=== PATIENT | female | born 1950 | race Caucasian/White ===

== ENCOUNTER 2016-05-19 01:17 | Emergency (ER) | payer MEDICARE, OTHER ==
[~2016-05-19] VITALS: Ht 165.1 cm; Wt 90.9 kg
[2016-05-19 01:24] VITALS: Ht 165.1 cm; Wt 90.9 kg
[2016-05-19] MEDS ORDERED: ASPIRIN 325 MG TAB PO STA (01:59)
--- NOTE | 2016-05-19 02:11 | ERA ---
ER Documentation Chief Complaint Date/Time DATE: 05/19/16 TIME: 02:08 Chief Complaint CP X2 hours,BIBA RA39,aspirin 162 mg PO administered by craft coordinator HPI Patient is a 66-year-old female who reports chest pain for last 2 hours. She states the pain feels similar to when she had her prior heart attack. She says she has shortness of breath with nausea and that the pain radiates into her left shoulder. She did take aspirin prior to coming in. She states the pain is now improved. She also felt lightheaded and dizzy but did not pass out. She said she felt poorly all day but did not have the chest pain into until 2 hours ago. She has not had any recent fever, coughing, congestion, rhinorrhea, sore throat, or otalgia. Nothing seemed to trigger the chest pain and she believes the aspirin helped the chest pain. She denies any lower extremity swelling or pain. She does have a history of a DVT but states that her extremities do not feel similar to that. Remainder of the systems are negative. ROS All systems reviewed and are negative except as per history of present illness. Allergies Allergies: Coded Allergies: nitroglycerin (Verified Allergy, Unknown, 05/19/16) PMhx/Soc History of Surgery: Yes (HYSTERECTOMY 1997) Anesthesia Reaction: No Hx Neurological Disorder: No Hx Respiratory Disorders: Yes (PNA, ASTHMA) Hx Cardiac Disorders: Yes (HTN) Hx Psychiatric Problems: No Hx Miscellaneous Medical Probl: Yes ("KIDNEY PROBLEMS") Hx Alcohol Use: Yes Hx Substance Use: No Hx Tobacco Use: Yes Smoking Status: Current every day smoker FmHx Family History: coronary disease Physical Exam Vitals Vital Signs Date Time Temp Pulse Resp B/P Pulse Ox O2 Delivery O2 Flow Rate FiO2 05/19/16 04:30 59 15 140/61 98 Nasal Cannula 2.0 05/19/16 03:00 98.1 61 15 132/63 97 Nasal Cannula 05/19/16 02:15 Nasal Cannula 2 05/19/16 01:25 97.6 63 18 163/84 100 Room Air 05/19/16 01:24 98.2 66 18 198/91 98 Physical Exam Const: [] Well-developed well-nourished female sitting on the bed no acute distress Head: Atraumatic normocephalic Eyes: Normal Conjunctiva, notable cholesterol deposits in her eyelids ENT: Normal External Ears, Nose and Mouth. Neck: Full range of motion..~ No meningismus. Resp: Clear to auscultation bilaterally Cardio: Regular rate and rhythm, no murmurs mild tenderness to palpation in the anterior chest wall Abd: Soft, non tender, non distended. Normal bowel sounds Skin: No petechiae or rashes Back: No midline or flank tenderness Ext: No cyanosis, mild pedal edema which is nonpitting, no calf tenderness to palpation Neur: Awake and alert, oriented 3 with a GCS of 15 grossly nonfocal Psych: Normal Mood and Affect Result Diagram: 05/19/1612905/19/160 Results 24 hrs Laboratory Tests Test 05/19/16 01:30 Activated Partial Thromboplast Time 27.2Sec Alanine Aminotransferase (ALT/SGPT) 16IU/L Albumin 3.7g/dl Albumin/Globulin Ratio 1.12 Alkaline Phosphatase 93IU/L Anion Gap 16 Aspartate Amino Transf (AST/SGOT) 15IU/L Basophils # 0.110^3/ul Basophils % 0.9% Blood Urea Nitrogen 37mg/dl Calcium Level 8.9mg/dl Carbon Dioxide Level 23mmol/L Chloride Level 106mmol/L Creatinine 1.65mg/dl Direct Bilirubin 0.00mg/dl Eosinophils # 0.310^3/ul Eosinophils % 4.1% Globulin 3.30g/dl Glucose Level 102mg/dl Hematocrit 38.4% Hemoglobin 12.8g/dl INR International Normalized Ratio 0.83 Indirect Bilirubin 0.0mg/dl Lymphocytes # 2.110^3/ul Lymphocytes % 30.0% Mean Corpuscular Hemoglobin 30.1pg Mean Corpuscular Hemoglobin Concent 33.3g/dl Mean Corpuscular Volume 90.4fl Mean Platelet Volume 11.9fl Monocytes # 0.510^3/ul Monocytes % 7.0% Neutrophils # 4.010^3/ul Neutrophils % 57.9% Nucleated Red Blood Cells # 0.010^3/ul Nucleated Red Blood Cells % 0.0/100WBC Platelet Count 90633^3/UL Potassium Level 4.6mmol/L Prothrombin Time 11.4Sec Prothrombin Time Ratio 0.9 Red Blood Count 4.2510^6/ul Red Cell Distribution Width 13.4% Sodium Level 140mmol/L Total Bilirubin 0.0mg/dl Total Protein 7.0g/dl Troponin I < 0.010ng/ml White Blood Count 6.810^3/ul Current Medications Medications (Trade) Dose Ordered Sig/Deric Route PRN Reason Start Time Stop Time Status Last Admin Dose Admin Aspirin 325 mg 325 mg ONCE STAT PO 05/19/16 01:59 05/19/16 02:00 DC 05/19/16 02:06 Sodium Chloride (NS) 1,000 ml @ 75 mls/hr [id number] IV 05/19/16 05:19 UNV IV Flush (NS 3 ml) 3 ml PER PROTOCOL IV 05/19/16 05:30 UNV Ondansetron HCl (Zofran Tab) 4 mg Q6H PRN PO NAUSEA AND/OR VOMITING 05/19/16 05:30 UNV Acetaminophen (Tylenol Tab) 650 mg Q6H PRN PO PAIN LEVEL 1-3 OR FEVER 05/19/16 05:30 UNV Acetaminophen/ Hydrocodone Bitart ([place] (5/325)) 1 tab Q6H PRN PO PAIN LEVEL 4-6 05/19/16 05:30 UNV Zolpidem Tartrate (Ambien) 5 mg QHS PRN PO INSOMNIA 05/19/16 05:30 UNV Docusate Sodium (Colace) 100 mg Q12H PRN PO CONSTIPATION 05/19/16 05:30 UNV Famotidine (Pepcid) 20 mg Q12 PO 05/19/16 09:00 UNV Enoxaparin Sodium (Lovenox) 40 mg DAILY SC 05/19/16 09:00 UNV Miscellaneous Information (* Miscellaneous Pharmacy Order) HYPOGLYCEMIA PROTOCOL w... ONCE ONCE XX 05/19/16 05:30 05/19/16 05:36 DC Miscellaneous Information (* Miscellaneous Pharmacy Order) Discontinue Glyburide, Glipizide,... ONCE ONCE XX 05/19/16 05:30 05/19/16 05:37 DC Miscellaneous Information (* Miscellaneous Pharmacy Order) Discontinue all previ... ONCE ONCE XX 05/19/16 05:30 05/19/16 05:37 DC Miscellaneous Information 1 ea NOTE XX 05/19/16 06:00 Glucose (Glutose) 15 gm Q15M PRN PO DECREASED GLUCOSE 05/19/16 06:00 Glucose (Glutose) 22.5 gm Q15M PRN PO DECREASED GLUCOSE 05/19/16 06:00 Dextrose (D50w Syringe) 25 ml Q15M PRN IV DECREASED GLUCOSE 05/19/16 06:00 Dextrose (D50w Syringe) 50 ml Q15M PRN IV DECREASED GLUCOSE 05/19/16 06:00 Glucagon (Glucagen) 1 mg Q15M PRN IM DECREASED GLUCOSE 05/19/16 06:00 Glucose (Glutose) 15 gm Q15M PRN BUCCAL DECREASED GLUCOSE 05/19/16 06:00 Procedures/MDM Differential includes but is not limited to nonspecific chest pain, chest wall pain, angina, myocardial ischemia, pleurisy, pneumonia, bronchitis EKG: Rate/Rhythm: Normal Sinus Rhythm at 60 bpm, patient has a intraventricular block with Q waves noted in leads V1 and V2 as well as V3 and nonspecific ST-T wave flattening diffusely, no evidence of acute ST elevation QRS, ST, T-waves: No changes consistent w/ acute ischemia Impression: No evidence of acute ischemia or arrhythmia Chest x-ray does not demonstrate any acute cardiopulmonary process At this time the patient is chest pain-free. I spoke with Dr. Martinez who is agreed to admit the patient for observation and rule out [place]. Further evaluation and treatment will be per Dr. Martinez Departure Diagnosis: Primary Impression: Chest pain Qualified Code: R07.2 - Precordial pain Additional Impressions: Coronary artery disease Qualified Code: I25.119 - Coronary artery disease involving [place] coronary artery of [place] heart with angina pectoris Hypertension Qualified Code: I10 - Essential hypertension Hypercholesterolemia Condition: ETELVINA Hinojosa May 19, 2016 02:11
[2016-05-19 02:33] LABS: ADD SCAN DIFF NO
--- NOTE | 2016-05-19 02:34 | RADRPT ---
PROCEDURE: XR Chest. CLINICAL INDICATION: Chest pain. TECHNIQUE: Single frontal chest x-ray. COMPARISON: None. FINDINGS: Patient is status post sternotomy.. Heart is mildly enlarged. There is no CHF. Lungs are slightly h yperinflated.. No focal infiltrate is seen. There is no pleural effusion. There is no pneumothorax . The osseous structures are unremarkable. IMPRESSION: Status post sternotomy. Cardiomegaly. Mild hyperinflation. No CHF or infiltrate. RPTAT: HMVK .Philip Chapman MD, MD Date Time Electronically viewed and signed by .Philip Chapman MD, on 05/19/2016 02:34 .K/
[2016-05-19 02:37] LABS: BASOPHIL # 0.1 10^3/ul (0.0-0.1); BASOPHILS % 0.9 % (0.0-2.0); EOSINOPHILS # 0.3 10^3/ul (0.0-0.5); EOSINOPHILS % 4.1 % (0.0-7.0); HEMATOCRIT 38.4 % (37.0-47.0); HEMOGLOBIN 12.8 g/dl (12.0-16.0); LYMPHOCYTES # 2.1 10^3/ul (0.8-2.9); MEAN CORPUSCULAR HEMOGLOBIN 30.1 pg (29.0-33.0); MEAN CORPUSCULAR HGB CONC 33.3 g/dl (32.0-37.0); MEAN CORPUSCULAR VOLUME 90.4 fl (82.0-101.0); MEAN PLATELET VOLUME 11.9 fl (7.4-10.4); MONOCYTE # 0.5 10^3/ul (0.3-0.9); NEUTROPHILS % 57.9 % (39.0-77.0); PLATELET COUNT 256 10^3/UL (140-415); RED BLOOD COUNT 4.25 10^6/ul (4.20-5.40); RED CELL DISTRIBUTION WIDTH 13.4 % (11.5-14.5); WHITE BLOOD COUNT 6.8 10^3/ul (4.8-10.8)
[2016-05-19 02:48] LABS: ALBUMIN 3.7 g/dl (3.3-4.9); INR 0.83; PARTIAL THROMBOPLASTIN TIME 27.2 Sec (25.0-35.0); PROTIME 11.4 Sec (12.2-14.2); PT RATIO 0.9
[2016-05-19 02:49] LABS: CHLORIDE 106 mmol/L (97-110); POTASSIUM 4.6 mmol/L (3.5-5.1); SODIUM 140 mmol/L (135-144)
[2016-05-19 02:51] LABS: ANION GAP 16 (8-16); ASPARTATE AMINO TRANSFERASE 15 IU/L (15-46); CARBON DIOXIDE 23 mmol/L (21-31); CREATININE 1.65 mg/dl (0.44-1.00)
[2016-05-19 02:52] LABS: ALANINE AMINOTRANSFERASE 16 IU/L (13-69); ALBUMIN/GLOBULIN RATIO 1.12; ALKALINE PHOSPHATASE 93 IU/L (42-121); BLOOD UREA NITROGEN 37 mg/dl (7-20); CALCIUM 8.9 mg/dl (8.4-10.2); GLUCOSE 102 mg/dl (70-220)
[2016-05-19 03:06] LABS: TROPONIN-I < 0.010 ng/ml (0.00-0.12)
[2016-05-19] MEDS ORDERED: SOD CHLORIDE 0.9% 1,000 ML IV SCH (05:19)
--- NOTE | 2016-05-19 05:27 | HP ---
Date/Time of Note Date/Time of Note DATE: 05/19/16 TIME: 05:27 Assessment/Plan VTE Prophylaxis VTE Prophylaxis Intervention: LMWH Lines/Catheters IV C[facility]ter Type [facility]from [facility] Saline Lock Assessment/Plan Assessment/Plan [facility] Ms. Vo is a 66-year-old patient of Dr. Morena Parry with hypertension , mixed hyperlipidemia, type II diabetes, stage III chronic kidney disease ( baseline creatinine 1.35), a history of [place], and subsequent 3-vessel coronary artery bypass surgery in 2010. She developed similar chest pain about midnight last night, with radiation to the left shoulder, nausea, and dizziness. Pain slightly alleviated by aspirin 162mg administered by EMS personnel en route. She was evaluated in March 2015 for similar chest pain at [facility], and was diagnosed with right lower lobe pneumonia. Lexiscan in January 2015 apparently showed no abnormalities, according to the patient. She is followed by Dr. Hernandez Blanton, Cardiology. Portable chest x-ray now shows no clear pulmonary disease. Initial two troponins are undetectable. EKG showed normal sinus rhythm, rate 61. She had low voltages in the limb leads, with wide-QRS complexes but no acute ischemic changes. Assessment: 1. Acute onset chest pain in patient with multiple risk factors (HLD, HTN, long- time smoker, diabetes). This pain seems atypical, with prolonged course, no association with exertion, and no elevation in the troponin despite prolonged pain. Seems less likely to be cardiac. 2. Chronic kidney disease, with creatinine 1.65 3. Type II diabetes 4. H/o DVT Plan: 1. Place under telemetry observation 2. Serial troponins 3. Echocardiogram in the morning 4. ESR, d-dimer, TSH, HgbA1c pending 5. Cardiology consultation with Dr. Philip Riddle this morning 6. Possible repeat Lexiscan today (NPO except for meds) 7. Patient is Full-Code 8. Lovenox 40mg SQ daily for DVT prophylaxis; famotidine 20mg PO BID for GI protection Matthias Uribe MD PhD [phone] HPI/ROS Admit Date/Time Admit Date/Time Hx of Present Illness Ms. Vo is a 66-year-old woman with a history of previous three-vessel coronary artery bypass graft surgery in 2010 and a most recent Yajaira scan will last summer. She has not been feeling well for the past month, with a sense of generalized weakness. Yesterday was her birthday, and she had a big piece of cake last night. No alcohol consumption. Admitted night she started feeling aching pain in the left chest, with radiation to the left arm and tingling down the arm. She felt some mild nausea. She says that she feels some shortness of breath more regularly, which was not worse last night. She called paramedics, and began to feel better en route to the hospital after taking 162 mg of chewable aspirin. ROS She has no nausea now, loose stool, constipation, or current chest pain. 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 She never practiced as a physician. She is a current smoking person. No alcohol consumption. Smoking Status: Current every day smoker Exam/Review of Systems Vital Signs Vitals Vital Signs Date Time Temp Pulse Resp B/P Pulse Ox O2 Delivery O2 Flow Rate FiO2 05/19/16 03:00 98.1 61 15 132/63 97 Nasal Cannula 05/19/16 02:15 2 Exam Exam She was serious and demeanor, but not uncomfortable breathing on room air. The pupils are equal round reactive to light, with intact ocular motion. There is no jaundice or conjunctivitis. She had no jugular venous distention. The neck was supple, with no thyromegaly. The cardiac rhythm is regular, with a normal rate. There is no murmur or rub. She had good peripheral perfusion. There was 1 + pitting pretibial and pedal edema. Chest was clear bilaterally, apart from some late expiratory rhonchi. Abdomen was large, soft, nontender, with normal bowel sounds and no hepatosplenomegaly. The joints were healthy appearing, and she had symmetric dorsalis pedis pulses. She was alert and oriented, with intact cranial nerves and motor exam. The toes were downgoing. Babinski reflexes were normal. Labs Result Diagram: 05/19/1612905/19/16129 CHRISTY URIBE M.D. May 19, 2016 05:27 CHRISTY URIBE M.D. May 19, 2016 05:27
[2016-05-19] MEDS ORDERED: ACETAMINOPHEN 325 MG TAB PO PRN ×2 (05:30→06:00)
[2016-05-19] MEDS ORDERED: NACL 0.9% 3 ML SYG IV SCH (05:30)
[2016-05-19] MEDS ORDERED: HYDROCODONE/APAP (5/325) TAB PO PRN (05:30)
[2016-05-19] MEDS ORDERED: ZOLPIDEM 5 MG TAB PO PRN (05:30)
[2016-05-19] MEDS ORDERED: ONDANSETRON 4 MG TAB PO PRN (05:30)
[2016-05-19] MEDS ORDERED: DOCUSATE SODIUM 100 MG CAP PO PRN (05:30)
[2016-05-19] MEDS ORDERED: DEXTROSE 50% 50 ML SYRINGE IV PRN ×2 (06:00)
[2016-05-19] MEDS ORDERED: GLUCOSE GEL 15 GRAM TUBE PO PRN ×2 (06:00)
[2016-05-19] MEDS ORDERED: GLUCOSE GEL 15 GRAM TUBE BUCCAL PRN (06:00)
[2016-05-19] MEDS ORDERED: ONDANSETRON 4 MG INJ IV PRN (06:00)
[2016-05-19] MEDS ORDERED: GLUCAGON 1 MG INJ IM PRN (06:00)
[2016-05-19] MEDS ORDERED: ENOXAPARIN 40 MG/0.4 ML SYG SC SCH (09:00)
[2016-05-19] MEDS ORDERED: FAMOTIDINE 20 MG TAB PO SCH (09:00)
[2016-05-19 10:04] LABS: CREATINE KINASE 48 IU/L (23-200); D-DIMER 2164.9 ng/ml (<460)
[2016-05-19 10:13] LABS: CK-MB 0.62 ng/ml (0.0-2.4)
[2016-05-19 10:17] LABS: TROPONIN-I < 0.010 ng/ml (0.00-0.12)
[2016-05-19] MEDS ORDERED: CARV3.1260 PO (10:37)
[2016-05-19] MEDS ORDERED: LISI2.5T59 PO (10:37)
[2016-05-19] MEDS ORDERED: SIMV5TAB50 PO (10:38)
[2016-05-19] MEDS ORDERED: OMEP20CA16 PO (10:39)
[2016-05-19] MEDS ORDERED: ASPI-664 PO (10:39)
--- NOTE | 2016-05-19 12:20 | CONS ---
Date/Time of Note Date/Time of Note DATE: 05/19/16 TIME: 12:08 Assessment/Plan Assessment/Plan Additional Assessment/Plan Chest, abdominal, neck pain Coronary artery disease with history of CABG Dyslipidemia Hypertension Kidney disease. Active tobacco use -Patient with symptoms of abdominal pain, chest pain, neck and shoulder pain and arm pain. She also complains of exertional wheezing over the past few months. She has had no further symptoms since admission. Serial troponins have been negative, ECG without any significant ischemic abnormalities. I did have an extensive discussion with the patient. She does have a cardiology appointment tomorrow with her sack sorter. She is requesting to be discharged to follow-up with her sack sorter which knows her best. That is reasonable given enzymes are negative, patient is asymptomatic currently and patient has follow-up within 24 hours. I asked the nursing staff to get the patient up and walk around, if she remains asymptomatic, okay for discharge at the current time with follow-up with her sack sorter tomorrow. Would continue aspirin, statin, beta-moo. Consultation Date/Type/Reason Admit Date/Time Type of Consultation: cv Reason for Consultation Chest pain Hx of Present Illness This is a 66-year-old female with history of coronary artery disease status post CABG approximately 6 years ago, dyslipidemia, hypertension, active tobacco abuse who presents with multiple complaints. Patient states, yesterday was her birthday and she drank some coffee and had some cake. Afterwards, she developed pain in her right upper quadrant, her mid abdomen, her chest, her neck and shoulders. She also developed symptoms of shortness of breath. Pain was occasionally tingling, occasionally crampy, occasionally heavy. Activity did not worsen or improve symptoms. She took some Indian medication for anxiety and afterwards felt lightheaded. Because of the above, she came to the emergency room for further evaluation and care. Since her admission, she denies any further symptoms. She does admit to exertional wheezing over the past few months. She has been smoking more recently. She denies exertional chest pain, dizziness or lightheadedness. She has had no further symptoms since admission. She does get occasional neck and shoulder pain with moving head side to side and moving her arms. 12 point review of systems was performed with all pertinent positives and negatives mentioned above and all else is negative Past Medical History Medical History: coronary artery disease, deep vein thrombosis, diabetes, high cholesterol, hypertension, renal disease Past Surgical History Past Surgical Hx: coronary bypass surgery, other (hysterectomy) Social History Smoking Status: Current every day smoker Exam/Review of Systems Vital Signs Vitals Vital Signs Date Time Temp Pulse Resp B/P Pulse Ox O2 Delivery O2 Flow Rate FiO2 05/19/16 11:00 97.6 65 15 116/96 98 Nasal Cannula 2.0 Exam No apparent distress Constitutional: alert, obese, oriented Head: normocephalic Neck: supple Respiratory: clear to auscultation, normal air movement Cardiovascular: other (S1-S2 heard), regular rate and rhythm, systolic murmur Gastrointestinal: bowel sounds, non-tender, other (No guarding), soft Extremities: other (No edema) Results Result Diagram: 05/19/1612905/19/16 0130 Results 24 hrs Laboratory Tests Test 05/19/16 01:30 05/19/16 09:35 Activated Partial Thromboplast Time 27.2 Alanine Aminotransferase (ALT/SGPT) 16 Albumin 3.7 Albumin/Globulin Ratio 1.12 Alkaline Phosphatase 93 Anion Gap 16 Aspartate Amino Transf (AST/SGOT) 15 Basophils # 0.1 Basophils % 0.9 Blood Urea Nitrogen 37 H Calcium Level 8.9 Carbon Dioxide Level 23 Chloride Level 106 Creatinine 1.65 H Direct Bilirubin 0.00 Eosinophils # 0.3 Eosinophils % 4.1 Globulin 3.30 H Glucose Level 102 Hematocrit 38.4 Hemoglobin 12.8 INR International Normalized Ratio 0.83 Indirect Bilirubin 0.0 Lymphocytes # 2.1 Lymphocytes % 30.0 Mean Corpuscular Hemoglobin 30.1 Mean Corpuscular Hemoglobin Concent 33.3 Mean Corpuscular Volume 90.4 Mean Platelet Volume 11.9 H Monocytes # 0.5 Monocytes % 7.0 Neutrophils # 4.0 Neutrophils % 57.9 Nucleated Red Blood Cells # 0.0 Nucleated Red Blood Cells % 0.0 Platelet Count 256 Potassium Level 4.6 Prothrombin Time 11.4 L Prothrombin Time Ratio 0.9 Red Blood Count 4.25 Red Cell Distribution Width 13.4 Sodium Level 140 Total Bilirubin 0.0 L Total Protein 7.0 Troponin I < 0.010 < 0.010 White Blood Count 6.8 Creatine Kinase 48 Creatine Kinase Index 1.3 Creatinine Kinase MB (Mass) 0.62 D-Dimer 2164.90 H D-Dimer Comment Erythrocyte Sedimentation Rate 55 H Medications Medications Current Medications Sodium Chloride (NS) 1,000 ml @ 75 mls/hr [id number] IV Last administered on 05/19 09:52; Admin Dose 75 MLS/HR; Start 05/19/16 at 05:19 Ondansetron HCl (Zofran Tab) 4 mg Q6H PRN PO NAUSEA AND/OR VOMITING; Start at 05:30 Acetaminophen (Tylenol Tab) 650 mg Q6H PRN PO PAIN LEVEL 1-3 OR FEVER; Start at 05:30 Acetaminophen/ Hydrocodone Bitart ([place] (5/325)) 1 tab Q6H PRN PO PAIN LEVEL 4 -6; Start 05/19/16 at 05:30 Zolpidem Tartrate (Ambien) 5 mg QHS PRN PO INSOMNIA; Start 05/19/16 at 05:30 Docusate Sodium (Colace) 100 mg Q12H PRN PO CONSTIPATION; Start 05/19/16 at 05: 30 Famotidine (Pepcid) 20 mg Q12 PO Last administered on 05/19/16 09:52; Admin Dose 20 MG; Start 05/19/16 at 09:00 Enoxaparin Sodium (Lovenox) 40 mg DAILY SC Last administered on 05/19/16 09:52 ; Admin Dose 40 MG; Start 05/19/16 at 09:00 Miscellaneous Information 1 ea NOTE XX ; Start 05/19/16 at 06:00 Glucose (Glutose) 15 gm Q15M PRN PO DECREASED GLUCOSE; Start 05/19/16 at 06:00 Glucose (Glutose) 22.5 gm Q15M PRN PO DECREASED GLUCOSE; Start 05/19/16 at 06: 00 Dextrose (D50w Syringe) 25 ml Q15M PRN IV DECREASED GLUCOSE; Start 05/19/16 at 06:00 Dextrose (D50w Syringe) 50 ml Q15M PRN IV DECREASED GLUCOSE; Start 05/19/16 at 06:00 Glucagon (Glucagen) 1 mg Q15M PRN IM DECREASED GLUCOSE; Start 05/19/16 at 06:00 Glucose (Glutose) 15 gm Q15M PRN BUCCAL DECREASED GLUCOSE; Start 05/19/16 at 06 :00 Procedures Procedures ECG demonstrates sinus rhythm, anterior Q waves, IVCD, nonspecific STT wave abnormalities Philip Riddle DO May 19, 2016 12:19
[2016-05-19 13:00] VITALS: BP 151/67; PULSE 67; RESP 15; TEMP 97.6
--- NOTE | 2016-05-19 13:46 | PDOCDIS ---
Discharge Instructions DIAGNOSIS Discharge Diagnosis: Non-cardiac chest pain CONDITION Patient Condition: Good HOME CARE INSTRUCTIONS: Diet Instructions: Low Fat /Cholesterol ACTIVITY: Activity Restrictions: Slowly Increase Activity FOLLOW UP/APPOINTMENTS Appointments Hernandez Blanton MD (Cardiology) tomorrow morning CHRISTY TRAORE M.D. May 19, 2016 13:46
--- NOTE | 2016-05-19 13:57 | DS ---
Date/Time of Note Date/Time of Note DATE: 05/19/16 TIME: 13:50 Discharge Summary Admission/Discharge Info Admit Date/Time May 19, 2016 Discharge Date/Time May 19, 2016 Final Diagnosis Non-cardiac chest pain Patient Condition: Good Consults Philip Riddle DO (Cardiology) Procedures EKG, serial troponins Hx of Present Illness Ms. Vo is a 66-year-old woman with a history of previous three-vessel coronary artery bypass graft surgery in 2010 and a most recent Yajaira scan will last summer. She has not been feeling well for the past month, with a sense of generalized weakness. Yesterday was her birthday, and she had a big piece of cake last night. No alcohol consumption. Admitted night she started feeling aching pain in the left chest, with radiation to the left arm and tingling down the arm. She felt some mild nausea. She says that she feels some shortness of breath more regularly, which was not worse last night. She called paramedics, and began to feel better en route to the hospital after taking 162 mg of chewable aspirin. Hospital Course In the ER she had an EKG with normal sinus rhythm, rate 62, with no acute ischemic changes. Troponin I was negative x 2. She had substantial resolution of the discomfort overnight, and wondered if the pain was related to the cake and coffee she ate yesterday for her birthday. Her exam showed a normal heart, with good peripheral perfusion. No chest wall tenderness or squeeze tenderness. Dr. Philip Riddle met with the patient for cardiology and reviewed the studies. We discussed the case afterward, and concluded this was unlikely to represent acute myocardial ischemia. No change in her medications, which include omeprazole for GERD. Home Meds Reported Medications Aspirin (Low Dose Aspirin) 81 Mg Tablet., 81 MG PO DAILY, #30 TAB 05/19/16 Omeprazole* (Omeprazole*) 20 Mg Capsule., 20 MG PO DAILY, #30 CAP 05/19/16 Simvastatin* (Simvastatin*) Unknown Strength Tablet, PO QHS, #30 TAB 05/19/16 Lisinopril* (Lisinopril*) Unknown Strength Tablet, PO DAILY, #30 TAB 05/19/16 Carvedilol* (Carvedilol*) Unknown Strength Tablet, PO BID, #60 TAB 05/19/16 Follow-up Plan She has a follow-up appointment with her dosier operator, Dr. Hernandez Blanton, tomorrow. Pending Labs Laboratory Tests Test 05/19/16 01:30 05/19/16 09:35 Activated Partial Thromboplast Time 27.2Sec (25.0-35.0) Alanine Aminotransferase (ALT/SGPT) 16IU/L (13-69) Albumin 3.7g/dl (3.3-4.9) Albumin/Globulin Ratio 1.12 Alkaline Phosphatase 93IU/L (42-121) Anion Gap 16 (8-16) Aspartate Amino Transf (AST/SGOT) 15IU/L (15-46) Basophils # 0.110^3/ul (0.0-0.1) Basophils % 0.9% (0.0-2.0) Blood Urea Nitrogen 37mg/dl (7-20) Calcium Level 8.9mg/dl (8.4-10.2) Carbon Dioxide Level 23mmol/L (21-31) Chloride Level 106mmol/L (97-110) Creatinine 1.65mg/dl (0.44-1.00) Direct Bilirubin 0.00mg/dl (0.00-0.20) Eosinophils # 0.310^3/ul (0.0-0.5) Eosinophils % 4.1% (0.0-7.0) Globulin 3.30g/dl (1.3-3.2) Glucose Level 102mg/dl (70-220) Hematocrit 38.4% (37.0-47.0) Hemoglobin 12.8g/dl (12.0-16.0) INR International Normalized Ratio 0.83 Indirect Bilirubin 0.0mg/dl (0-1.1) Lymphocytes # 2.110^3/ul (0.8-2.9) Lymphocytes % 30.0% (15.0-51.0) Mean Corpuscular Hemoglobin 30.1pg (29.0-33.0) Mean Corpuscular Hemoglobin Concent 33.3g/dl (32.0-37.0) Mean Corpuscular Volume 90.4fl (82.0-101.0) Mean Platelet Volume 11.9fl (7.4-10.4) Monocytes # 0.510^3/ul (0.3-0.9) Monocytes % 7.0% (0.0-11.0) Neutrophils # 4.010^3/ul (1.6-7.5) Neutrophils % 57.9% (39.0-77.0) Nucleated Red Blood Cells # 0.010^3/ul (0.0-0.0) Nucleated Red Blood Cells % 0.0/100WBC (0.0-0.0) Platelet Count 78838^3/UL (140-415) Potassium Level 4.6mmol/L (3.5-5.1) Prothrombin Time 11.4Sec (12.2-14.2) Prothrombin Time Ratio 0.9 Red Blood Count 4.2510^6/ul (4.20-5.40) Red Cell Distribution Width 13.4% (11.5-14.5) Sodium Level 140mmol/L (135-144) Total Bilirubin 0.0mg/dl (0.2-1.3) Total Protein 7.0g/dl (6.1-8.1) Troponin I < 0.010ng/ml (0.00-0.12) < 0.010ng/ml (0.00-0.12) White Blood Count 6.810^3/ul (4.8-10.8) Creatine Kinase 48IU/L (23-200) Creatine Kinase Index 1.3 Creatinine Kinase MB (Mass) 0.62ng/ml (0.0-2.4) D-Dimer 2164.90ng/ml (<460) D-Dimer Comment Erythrocyte Sedimentation Rate 55mm/Hr (0-30) Copies To: CC: Philip Riddle JOHN P. M.D. May 19, 2016 13:57
== END 2016-05-19 14:06 | disposition left against medical advice (07) ==
LOC: E/R 01:17
DX: R07.2 Precordial pain (principal); I25.119 Atherosclerotic heart disease of native coronary artery with unspecified angina pectoris; I10 Essential (primary) hypertension; J45.909 Unspecified asthma, uncomplicated; F17.210 Nicotine dependence, cigarettes, uncomplicated; E78.00 Pure hypercholesterolemia, unspecified; R11.0 Nausea; Z79.82 Long term (current) use of aspirin
CPT/HCPCS: 71010; 80053; 82550; 82553; 84484; 85025; 85378; 85610; 85651; 85730; 93005; 96372; 99285; J1650; J7030

== ENCOUNTER 2017-03-16 15:30 | Inpatient (IN) | payer MEDICARE, OTHER ==
[~2017-03-16] VITALS: Ht 154.9 cm; Wt 89.3 kg
[~2017-03-16 15:30] MED LIST: ASPI-664 PO; CARV3.1260 PO; LISI2.5T59 PO; OMEP20CA16 PO; SIMV5TAB50 PO
[2017-03-16] MEDS ORDERED: ASPIRIN 81 MG TAB PO STA (15:50)
[2017-03-16] MEDS ORDERED: morphine 4 MG/ML VIAL IV STA (15:50)
[2017-03-16 16:14] LABS: ABNORMAL IP MESSAGE 1; BASOPHILS % 0.5 % (0.0-2.0); EOSINOPHILS % 0.2 % (0.0-7.0); HEMATOCRIT 32.9 % (37.0-47.0); LYMPHOCYTES # 0.3 10^3/ul (0.8-2.9); LYMPHOCYTES % 4.5 % (15.0-51.0); MEAN CORPUSCULAR HEMOGLOBIN 30.6 pg (29.0-33.0); MEAN CORPUSCULAR HGB CONC 33.4 g/dl (32.0-37.0); MEAN CORPUSCULAR VOLUME 91.6 fl (82.0-101.0); MONOCYTE # 0.5 10^3/ul (0.3-0.9); MONOCYTES % 7.9 % (0.0-11.0); NEUTROPHIL # 5.7 10^3/ul (1.6-7.5); NEUTROPHILS % 86.4 % (39.0-77.0); PLATELET COUNT 206 10^3/UL (140-415); RED BLOOD COUNT 3.59 10^6/ul (4.20-5.40); RED CELL DISTRIBUTION WIDTH 14.3 % (11.5-14.5); WHITE BLOOD COUNT 6.6 10^3/ul (4.8-10.8)
[2017-03-16 16:15] LABS: POSITIVE DIFF @See below
[2017-03-16 16:38] LABS: CALCIUM 8.7 mg/dl (8.4-10.2); CREATININE 2.09 mg/dl (0.44-1.00); POTASSIUM 4.6 mmol/L (3.5-5.1)
[2017-03-16 16:51] LABS: TROPONIN-I 0.041 ng/ml (0.00-0.12)
--- NOTE | 2017-03-16 17:36 | RADRPT ---
PROCEDURE: XR Chest. CLINICAL INDICATION: Chest pain. TECHNIQUE: Single frontal view. COMPARISON: None. FINDINGS: There is mild right basilar atelectasis. The lungs are otherwise clear. The heart is enlarged. There are sternal wires. Calcification is present in the aorta consistent wit h atherosclerosis. There is no pleural effusion. There is no pneumothorax. IMPRESSION: 1. Mild cardiomegaly. 2. Previous median sternotomy. 3. Atherosclerosis. 4. Mild right basilar atelectasis. 5. Otherwise unremarkable chest radiograph. RPTAT: QQ .Riki Florentino MD, MD Date Time Electronically viewed and signed by .Riki Florentino MD, on 03/16/2017 17:36 .R/
[2017-03-16] MEDS ORDERED: FUROSEMIDE 40 MG INJ IV ONE (19:30)
[2017-03-16 21:37] VITALS: TEMP 99.3
[2017-03-16 22:37] LABS: CK-MB 0.99 ng/ml (0.0-2.4); TROPONIN-I 0.054 ng/ml (0.00-0.12)
[2017-03-16] MEDS ORDERED: NACL 0.9% 3 ML SYG IV SCH (23:00)
[2017-03-16] MEDS ORDERED: NITROGLYCERIN (SL) 0.4 MG TAB SL PRN (23:00)
[2017-03-16] MEDS ORDERED: DOCUSATE SODIUM 100 MG CAP PO PRN (23:00)
[2017-03-16] MEDS ORDERED: morphine 2 MG INJ IV PRN (23:00)
[2017-03-16] MEDS ORDERED: ONDANSETRON 4 MG INJ IV PRN ×2 (23:00→23:30)
[2017-03-16] MEDS ORDERED: MAGNESIUM HYDROXIDE 30ML CUP PO PRN (23:00)
[2017-03-16] MEDS ORDERED: ACETAMINOPHEN 325 MG TAB PO PRN ×2 (23:00→23:30)
[2017-03-16] MEDS ORDERED: HYDROCODONE/APAP (5/325) TAB PO PRN (23:00)
[2017-03-16] MEDS ORDERED: BISACODYL 10 MG SUPP PR PRN (23:00)
--- NOTE | 2017-03-16 23:59 | ERD ---
ER Documentation Chief Complaint Chief Complaint R88, cough & congestion x3 days, HPI 66-year-old female presents with cough congestion and seeming short of breath 3 days also has tightness across her entire chest. States that the shortness of breath is worse when she tries to lay down or if she tries to exert herself in any way. Denies fevers and chills. ROS All systems reviewed and are negative except as per history of present illness. Medications Home Meds Reported Medications Aspirin (Low Dose Aspirin) 81 Mg Tablet.dr, 81 MG PO DAILY, #30 TAB 05/19/16 Omeprazole* (Omeprazole*) 20 Mg Capsule.dr, 20 MG PO DAILY, #30 CAP 05/19/16 Simvastatin* (Simvastatin*) Unknown Strength Tablet, PO QHS, #30 TAB 05/19/16 Lisinopril* (Lisinopril*) Unknown Strength Tablet, PO DAILY, #30 TAB 05/19/16 Carvedilol* (Carvedilol*) Unknown Strength Tablet, PO BID, #60 TAB 05/19/16 Allergies Allergies: Coded Allergies: nitroglycerin (Verified Allergy, Unknown, 05/19/16) PMhx/Soc History of Surgery: Yes (HYSTERECTOMY 1997) Anesthesia Reaction: No Hx Neurological Disorder: No Hx Respiratory Disorders: Yes (PNA, ASTHMA) Hx Cardiac Disorders: Yes (HTN) Hx Psychiatric Problems: No Hx Miscellaneous Medical Probl: Yes ("KIDNEY PROBLEMS") Hx Alcohol Use: Yes Hx Substance Use: No Hx Tobacco Use: Yes Smoking Status: Current every day smoker Physical Exam Vitals Vital Signs Date Time Temp Pulse Resp B/P Pulse Ox O2 Delivery O2 Flow Rate FiO2 03/16/17 21:37 99.3 99 20 166/85 94 Nasal Cannula 2.0 03/16/17 18:21 101.3 78 18 149/76 99 Nasal Cannula 2.0 03/16/17 16:08 Nasal Cannula 3 03/16/17 15:40 100.0 95 18 182/78 92 Physical Exam Const: [] Mild to moderate distress, appears very uncomfortable, audible breathing Head: Atraumatic Eyes: Normal Conjunctiva ENT: Normal External Ears, Nose and Mouth. Neck: Full range of motion..~Mild JVD. Resp: Is bibasilar breath sounds with right basilar rales. Cardio: Regular rate and rhythm, no murmurs Abd: Soft, non tender, non distended. Normal bowel sounds Skin: No petechiae or rashes Ext: No cyanosis, bilateral pedal edema with distal pulses intact. Neur: Awake and alert and oriented 3, no focal deficits Psych: Normal Mood and Affect Result Diagram: 03/16/17 1600 03/16/17 1600 Results 24 hrs Laboratory Tests Test 03/16/17 16:00 03/16/17 21:57 White Blood Count 6.610^3/ul Red Blood Count 3.5910^6/ul Hemoglobin 11.0g/dl Hematocrit 32.9% Mean Corpuscular Volume 91.6fl Mean Corpuscular Hemoglobin 30.6pg Mean Corpuscular Hemoglobin Concent 33.4g/dl Red Cell Distribution Width 14.3% Platelet Count 13909^3/UL Mean Platelet Volume 11.0fl Neutrophils % 86.4% Lymphocytes % 4.5% Monocytes % 7.9% Eosinophils % 0.2% Basophils % 0.5% Nucleated Red Blood Cells % 0.0/100WBC Neutrophils # 5.710^3/ul Lymphocytes # 0.310^3/ul Monocytes # 0.510^3/ul Eosinophils # 0.010^3/ul Basophils # 0.010^3/ul Nucleated Red Blood Cells # 0.010^3/ul Sodium Level 137mmol/L Potassium Level 4.6mmol/L Chloride Level 102mmol/L Carbon Dioxide Level 26mmol/L Anion Gap 14 Blood Urea Nitrogen 27mg/dl Creatinine 2.09mg/dl Glucose Level 107mg/dl Calcium Level 8.7mg/dl Troponin I 0.041ng/ml 0.054ng/ml B-Type Natriuretic Peptide [id number]/ML Creatine Kinase 269IU/L Creatine Kinase Index 0.4 Creatinine Kinase MB (Mass) 0.99ng/ml Current Medications Medications (Trade) Dose Ordered Sig/Deric Route PRN Reason Start Time Stop Time Status Last Admin Dose Admin Aspirin (Aspirin) 162 mg ONCE STAT PO 03/16/17 15:50 03/16/17 15:53 DC 03/16/17 16:03 Morphine Sulfate (morphine) 4 mg ONCE STAT IV 03/16/17 15:50 03/16/17 15:53 DC 03/16/17 16:03 Furosemide (Lasix) 40 mg ONCE ONCE IV 03/16/17 19:30 03/16/17 19:31 DC 03/16/17 19:54 IV Flush (NS 3 ml) 3 ml PER PROTOCOL IV 03/16/17 23:00 Ondansetron HCl (Zofran Inj) 4 mg Q6H PRN IV NAUSEA AND/OR VOMITING 03/16/17 23:00 Nitroglycerin (Nitroglycerin (Sl Tab) 0.4 Mg) 1 tab Q5M PRN SL CHEST PAIN 03/16/17 23:00 Acetaminophen (Tylenol Tab) 650 mg Q6H PRN PO PAIN LEVEL 1-3 OR FEVER 03/16/17 23:00 Acetaminophen/ Hydrocodone Bitart ([place] (5/325)) 1 tab Q6H PRN PO PAIN LEVEL 4-6 03/16/17 23:00 Morphine Sulfate (morphine) 2 mg Q4H PRN IV PAIN LEVEL 7-10 03/16/17 23:00 Docusate Sodium (Colace) 100 mg Q12H PRN PO CONSTIPATION 03/16/17 23:00 Magnesium Hydroxide (Milk Of Mag) 30 ml DAILY PRN PO CONSTIPATION 03/16/17 23:00 Bisacodyl (Dulcolax Supp) 10 mg DAILY PRN [place] CONSTIPATION 03/16/17 23:00 Famotidine (Pepcid) 20 mg DAILY PO 03/17/17 09:00 Heparin Sodium (Porcine) (Heparin (5000 Units/0.5 ml)) 5,000 unit Q8 SC 03/17/17 06:00 Furosemide (Lasix) 40 mg BID DIURETICS IV 03/17/17 06:00 Carvedilol (Coreg) 6.25 mg BID PO 03/16/17 23:00 Aspirin (Halfprin) 81 mg DAILY PO 03/17/17 09:00 Atorvastatin Calcium (Lipitor) 80 mg HS PO 03/17/17 21:00 Ondansetron HCl (Zofran Inj) 4 mg ER BRIDGE PRN IV NAUSEA AND/OR VOMITING 03/16/17 23:30 03/17/17 23:29 Acetaminophen (Tylenol Tab) 650 mg ER BRIDGE PRN PO MILD PAIN/FEVER 03/16/17 23:30 03/17/17 23:29 Procedures/MDM Acute congestive heart failure exacerbation with concomitant renal insufficiency. She will need to be admitted for treatment of this precarious balance. She was given 40 mg of Lasix in the emergency room which did produce significant urine output. Is placed on oxygen and had decreased shortness of breath. BiPAP was considered but decided unnecessary. She was also given aspirin. No signs of acute cardiac ischemia. Low suspicion for pulmonary embolism. Spoke with , who will be admitting the patient to limit you for further workup. EKG interpretation: Normal sinus rhythm at 96, right axis deviation, nonspecific intraventricular conduction block, T-wave inversion in lead V6 only , normal intervals. Abnormal EKG. whipped topping mixer interpretation: Normal sinus rhythm without arrhythmia Chest x-ray interpretation: Mild engorgement of pulmonary vasculature without nikhil pulmonary edema, no pneumothorax, no infiltrates, no fractures, no pulmonary edema. Departure Diagnosis: Primary Impression: Acute CHF Additional Impressions: Chest pain Renal insufficiency Condition: Serious ANN LISA DO Mar 16, 2017 23:59
[2017-03-17] VITALS (12 sets, daily range): BP systolic 128–152; BP diastolic 60–70; PULSE 64–114; RESP 18–20; Ht 154.9 cm; Wt 89.3 kg
[2017-03-17 05:43] LABS: ABNORMAL IP MESSAGE 1; BASOPHILS % 0.7 % (0.0-2.0); HEMATOCRIT 32.3 % (37.0-47.0); HEMOGLOBIN 10.8 g/dl (12.0-16.0); LYMPHOCYTES # 0.5 10^3/ul (0.8-2.9); LYMPHOCYTES % 8.5 % (15.0-51.0); MEAN CORPUSCULAR HEMOGLOBIN 30.9 pg (29.0-33.0); MEAN CORPUSCULAR HGB CONC 33.4 g/dl (32.0-37.0); MEAN CORPUSCULAR VOLUME 92.3 fl (82.0-101.0); MEAN PLATELET VOLUME 11.5 fl (7.4-10.4); MONOCYTE # 0.6 10^3/ul (0.3-0.9); MONOCYTES % 10.3 % (0.0-11.0); NEUTROPHIL # 4.6 10^3/ul (1.6-7.5); NEUTROPHILS % 80.3 % (39.0-77.0); PLATELET COUNT 191 10^3/UL (140-415); RED CELL DISTRIBUTION WIDTH 14.3 % (11.5-14.5); WHITE BLOOD COUNT 5.7 10^3/ul (4.8-10.8)
[2017-03-17] MEDS: HEPARIN 5,000 UNIT/0.5 ML VIAL SC SCH ×3 (05:45→21:03)
[2017-03-17] MEDS ORDERED: FUROSEMIDE 40 MG INJ IV SCH (06:00)
[2017-03-17 06:04] LABS: POSITIVE DIFF @See below
[2017-03-17 06:11] LABS: INR 0.98; PROTIME 13.1 Sec (11.9-14.9)
[2017-03-17 06:12] LABS: PARTIAL THROMBOPLASTIN TIME 32.1 Sec (25.0-35.0)
[2017-03-17 06:30] LABS: ALBUMIN 3.5 g/dl (3.3-4.9); ALBUMIN/GLOBULIN RATIO 1.09; BILIRUBIN,INDIRECT 0.3 mg/dl (0-1.1); BILIRUBIN,TOTAL 0.3 mg/dl (0.2-1.3); CALCIUM 8.7 mg/dl (8.4-10.2); CREATININE 2.25 mg/dl (0.44-1.00); MAGNESIUM 1.5 mg/dl (1.7-2.5); POTASSIUM 4.2 mmol/L (3.5-5.1); TOTAL PROTEIN 6.7 g/dl (6.1-8.1)
[2017-03-17 06:33] LABS: CK-MB 1.44 ng/ml (0.0-2.4); TROPONIN-I 0.06 ng/ml (0.00-0.12)
[2017-03-17 06:38] LABS: CHOL/HDL RATIO 13.1 RATIO
[2017-03-17 06:53] LABS: THYROID STIMULATING HORMONE 0.474 MIU/L (0.465-4.680)
[2017-03-17] MEDS ORDERED: MAGNESIUM SULFATE 2 GM/50 ML 50 ML IVPB ONE (07:00)
--- NOTE | 2017-03-17 08:27 | RADRPT ---
PROCEDURE: Renal US. CLINICAL INDICATION: Renal dysfunction. TECHNIQUE: Multiple sonographic images of the kidneys and urinary bladder were obtained. The imag es were reviewed on a PACS workstation. COMPARISON: No prior studies are available for comparison. FINDINGS: The right kidney measures 10.4 cm. The left kidney measures 6.1 cm. There is no solid renal mass. There is a benign cyst in the mid right kidney measuring 3.3 cm, and a benign cyst in the upper left kidney measuring 1.7 cm. The right kidney is normal in size. The left kidney is atrophic. There is no hydronephrosis. There is no renal calculus. Renal parenchymal thickness is normal bilaterally. Echogenicity is normal bilaterally. The perirenal regions are normal with no fluid collection or mass. The urinary bladder is empty. IMPRESSION: 1. Benign bilateral renal cysts. 2. No hydronephrosis. 3. Atrophic left kidney. 4. Empty urinary bladder. 5. Otherwise unremarkable renal ultrasound. RPTAT: QQ .Riki Florentino MD, MD Date Time Electronically viewed and signed by .Riki Florentino MD, MD on 03/17/2017 08:26 .R/
[2017-03-17] MEDS: FAMOTIDINE 20 MG TAB PO SCH (08:55)
[2017-03-17] MEDS: ASPIRIN (EC) 81 MG TAB PO SCH (08:55)
--- NOTE | 2017-03-17 16:17 | HP ---
Date/Time of Note Date/Time of Note DATE: 03/17/17 TIME: 16:17 Assessment/Plan VTE Prophylaxis VTE Prophylaxis Intervention: SCD's Lines/Catheters IV [facility]from [facility] Urinary Cath still in place: Yes Reason Cath still needed: other (indicate) (Strict I's and O's) Assessment/Plan Assessment/Plan 66-year-old female with: 1. Respiratory distress: Seems to be more so secondary to mild COPD exacerbation with a possible component of mild CHF exacerbation upon arrival last night in the emergency department. Chest x-ray showing atelectasis versus infiltrate right base, patient did have a fever to 101.3. Was already diuresed overnight with some minimal improvement, she will be treated for COPD exacerbation now with nebulizer treatment, Advair, antibiotics for possible underlying bronchitis versus bronchopneumonia. She may benefit from low-dose steroids. 2. Emphysema, COPD, patient was already diagnosed as an outpatient but not treated and she still smoking Discontinue tobacco use, nicotine patch will be placed Treat mild exacerbation with nebulizer treatment, Advair, antibiotics. If any further decompensation will start on systemic steroids. 3. Mild CHF exacerbation, seems to be more euvolemic today. 2D echocardiogram pending to evaluate ejection fraction. Decrease Lasix to 20 mg IV daily and monitor renal function. DC Eubanks catheter in the next 24 hours. Continue cardiac medications. 4. Coronary artery disease, status post coronary artery bypass surgery 2010 followed by stenting of 1 of the graft that closed up in June 2016 at [facility]. Continue current dual antiplatelets along with carvedilol. Once renal function stabilizes she may benefit from ARB or BRITTANEY inhibitors if safe with her kidney disease. 5. Hypertension: Continue current medications. 6. Hyperlipidemia: Continue statin therapy. 7. Tobacco use: Nicotine patch and patient has been counseled to quit smoking. 8. Chronic kidney disease, looks like her left kidney is atrophic, she is aware of it, unclear what her baseline renal function is better with records can be obtained from [facility]. Continue current care, monitor electrolytes and urine output. 9. Obesity: Lifestyle modification Prophylaxis: SCDs for DVT prophylaxis, Pepcid for GI prophylaxis Disposition: Monitor on telemetry, monitor respiratory status, follow-up on 2D echocardiogram hopefully discharge planning in the next 48 hours. HPI/ROS Admit Date/Time Admit Date/Time Mar 16, 2017 at 23:19 Hx of Present Illness Chief complaint: Respiratory distress History of presenting illness: This is a 66-year-old female with history of coronary artery disease, status post coronary artery bypass surgery in 2010, congestive heart failure unclear ejection fraction, hyperlipidemia, hypertension , morbid obesity, emphysema, currently heavy tobacco user who presented to the emergency department with complaint of severe respiratory distress for 2 days. Patient reports that 2 days ago she was exposed to the cold weather, after which she started coughing and having episodes of shortness of breath and dyspnea on exertion. On the day of admission she had fevers, diaphoresis and worsening dyspnea on exertion and shortness of breath. She was on Lasix as an outpatient and apparently took it 2 days ago, she did not know the list of her medication, it is unlikely she is compliant with medications but claims that she is on Lasix, aspirin and Plavix at least. In the emergency department she was noted to have elevated BNP but chest x-ray only showed a right mild basilar atelectasis and she had an episode of fever up to 101.3. She did receive a dose of Lasix 40 mg IV in the ER last night and this morning with good diuresis, she is noted to have chronic kidney disease and has confirmed that she was told she has it. Creatinine is up to 2.25 today. On my exam she is fairly euvolemic actually, repeat chest x-rays unchanged with no signs of pulmonary edema. Based on her history and symptoms she likely has either bronchitis or bronchopneumonia that may be viral versus bacterial. She also has emphysema and likely has an exacerbation. Therefore her treatment will consist of intervention to treat both COPD exacerbation and mild CHF exacerbation along with possible bronchitis/bronchopneumonia. Eubanks catheter was placed on admission, should be discontinued in the next 24 hours. Patient stable on 2 L nasal cannula but does desaturate easily with minimal exertion. Diuretics dosage have been decreased. She denies chest pain, nausea or vomiting. Cardiac enzymes remain negative and EKG does not show any signs of ischemia. ROS Constitutional: chills, fatigue Eyes: no complaints ENT: no complaints Respiratory: cough, other (Skin exertion), shortness of breath, wheezing ( Expiratory) Cardiovascular: no complaints Gastrointestinal: no complaints Genitourinary: no complaints Musculoskeletal: no complaints Skin: no complaints Neurologic: no complaints Endocrine: no complaints Lymphatic: no complaints Psychological: no complaints PMH/Family/Social Past Medical History Coronary artery disease, status post bypass surgery 2010 followed by stent placement in June 2016 due to closing of 1 of the grafts, this was done at [facility] Chronic kidney disease, unclear baseline but likely creatinine around 2.0 and patient was already told that her left kidney was not working well which is seen on ultrasound here Hyperlipidemia Obesity Hypertension Tobacco use Emphysema Congestive heart failure, 2D echocardiogram pending to determine if patient does have systolic versus diastolic dysfunction. Past Surgical History Status post coronary artery bypass surgery in 2010 Status post appendectomy remotely Status post hysterectomy remotely Past Surgical Hx: coronary bypass surgery, other Family History Significant Family History: no pertinent family hx Social History Alcohol Use: none Smoking Status: Current every day smoker (1 pack /day for the past 40 years) Drug Use: none Exam/Review of Systems Vital Signs Vitals Vital Signs Date Time Temp Pulse Resp B/P Pulse Ox O2 Delivery O2 Flow Rate FiO2 03/17/17 16:14 98.2 68 18 147/63 96 03/17/17 07:00 Nasal Cannula 2.0 Intake and Output 03/16/17 03/16/17 03/17/17 15:00 23:00 07:00 Output Total 900 ml Balance -900 ml Exam Constitutional: alert, oriented, other (Obese), well developed Head: normocephalic Neck: supple Respiratory: diminished breath sounds (Bilaterally, right base more so, improved), wheezing (Expiratory wheezes throughout) Cardiovascular: nl pulses, regular rate and rhythm Gastrointestinal: non-tender, soft Musculoskeletal: nl extremities to inspection, nl gait and stance Extremities: normal pulses, other (No edema, clubbing or cyanosis) Neurological: LINK WIRE FABRIC MACHINE TENDER II-XII intact, nl mental status, nl speech, nl strength Labs Result Diagram: 03/17/1743203/17/17 043 Medications Medications Current Medications Ondansetron HCl (Zofran Inj) 4 mg Q6H PRN IV NAUSEA AND/OR VOMITING; Start at 23:00 Nitroglycerin (Nitroglycerin (Sl Tab) 0.4 Mg) 1 tab Q5M PRN SL CHEST PAIN; Start 03/16/17 at 23:00 Acetaminophen (Tylenol Tab) 650 mg Q6H PRN PO PAIN LEVEL 1-3 OR FEVER; Start 03/16/17 at 23:00 Acetaminophen/ Hydrocodone Bitart ([place] (5/325)) 1 tab Q6H PRN PO PAIN LEVEL 4 -6; Start 03/16/17 at 23:00 Morphine Sulfate (morphine) 2 mg Q4H PRN IV PAIN LEVEL 7-10; Start 03/16/17 at 23:00 Docusate Sodium (Colace) 100 mg Q12H PRN PO CONSTIPATION; Start 03/16/17 at 23 :00 Magnesium Hydroxide (Milk Of Mag) 30 ml DAILY PRN PO CONSTIPATION; Start 03/16 at 23:00 Bisacodyl (Dulcolax Supp) 10 mg DAILY PRN [place] CONSTIPATION; Start 03/16/17 at 23:00 Famotidine (Pepcid) 20 mg DAILY PO Last administered on 03/17/17 08:55; Admin Dose 20 MG; Start 03/17/17 at 09:00 Heparin Sodium (Porcine) (Heparin (5000 Units/0.5 ml)) 5,000 unit Q8 SC Last administered on 03/17/17 16:09; Admin Dose 5,000 UNIT; Start 03/17/17 at 06: 00 Carvedilol (Coreg) 6.25 mg BID PO Last administered on 03/17/17 08:56; Admin Dose 6.25 MG; Start 03/16/17 at 23:00 Aspirin (Halfprin) 81 mg DAILY PO Last administered on 03/17/17 08:55; Admin Dose 81 MG; Start 03/17/17 at 09:00 Atorvastatin Calcium (Lipitor) 80 mg HS PO ; Start 03/17/17 at 21:00 Procedures Procedures PROCEDURE: XR Chest. CLINICAL INDICATION: Chest pain. TECHNIQUE: Single frontal view. COMPARISON: None. FINDINGS: There is mild right basilar atelectasis. The lungs are otherwise clear. The heart is enlarged. There are sternal wires. Calcification is present in the aorta consistent with atherosclerosis. There is no pleural effusion. There is no pneumothorax. IMPRESSION: 1. Mild cardiomegaly. 2. Previous median sternotomy. 3. Atherosclerosis. 4. Mild right basilar atelectasis. 5. Otherwise unremarkable chest radiograph. RPTAT: QQ .Riki Florentino MD, MD Date Time Electronically viewed and signed by .Riki Florentino MD, MD on 03/16/2017 17:36 PROCEDURE: Renal US. CLINICAL INDICATION: Renal dysfunction. TECHNIQUE: Multiple sonographic images of the kidneys and urinary bladder were obtained. The images were reviewed on a PACS workstation. COMPARISON: No prior studies are available for comparison. FINDINGS: The right kidney measures 10.4 cm. The left kidney measures 6.1 cm. There is no solid renal mass. There is a benign cyst in the mid right kidney measuring 3.3 cm, and a benign cyst in the upper left kidney measuring 1.7 cm. The right kidney is normal in size. The left kidney is atrophic. There is no hydronephrosis. There is no renal calculus. Renal parenchymal thickness is normal bilaterally. Echogenicity is normal bilaterally. The perirenal regions are normal with no fluid collection or mass. The urinary bladder is empty. IMPRESSION: 1. Benign bilateral renal cysts. 2. No hydronephrosis. 3. Atrophic left kidney. 4. Empty urinary bladder. 5. Otherwise unremarkable renal ultrasound. RPTAT: QQ .Riki Florentino MD, MD Date Time Electronically viewed and signed by .Riki Florentino MD, on 03/17/2017 08:26 OCEDURE: XR Chest. CLINICAL INDICATION: Shortness of breath. TECHNIQUE: Single frontal view. COMPARISON: March 16, 2017. FINDINGS: There is mild right basilar atelectasis. The lungs are otherwise clear. The heart is enlarged. There are sternal wires. Calcification is present in the aorta consistent with atherosclerosis. There is no pleural effusion. There is no pneumothorax. IMPRESSION: 1. No change from the March 16, 2017 chest radiograph. RPTAT: QQ .Riki Florentino MD, MD Date Time Electronically viewed and signed by .Riki Florentino MD, MD on 03/17/2017 16:59 EKG: Sinus rhythm, no signs of acute ischemic changes MICAH BOSE Mar 17, 2017 16:17
--- NOTE | 2017-03-17 16:59 | RADRPT ---
PROCEDURE: XR Chest. CLINICAL INDICATION: Shortness of breath. TECHNIQUE: Single frontal view. COMPARISON: March 16, 2017. FINDINGS: There is mild right basilar atelectasis. The lungs are otherwise clear. The heart is enlarged. There are sternal wires. Calcification is present in the aorta consistent wit h atherosclerosis. There is no pleural effusion. There is no pneumothorax. IMPRESSION: 1. No change from the March 16, 2017 chest radiograph. RPTAT: QQ .Riki Florentino MD, MD Date Time Electronically viewed and signed by .Riki Florentino MD, MD on 03/17/2017 16:59 .R/
[2017-03-17] MEDS ORDERED: ALBUTEROL/IPRATROPIUM (NEB) 3 ML AMP HHN PRN (17:00)
[2017-03-17] MEDS ORDERED: LEVOFLOXACIN 750 MG TABLET PO SCH (17:00)
--- NOTE | 2017-03-17 17:29 | RADRPT ---
Echocardiogram Report Patient Name: MUSTAPHA ADAMSON Gender: Female Date: 1950 Study Date: 17-Mar-2017 Aviation Maintenance Technician: HUBER Location: [id number] Ref. Physician: AUGUSTINE BOSE Quality: Technically Difficult Study Procedures: Transthoracic echocardiogram with complete 2D, M-Mode, and doppler examination. Indications: Congestive Heart Failure. 2D/M Mode Doppler Measurement Value Normal Ranges Measurement Value Normal Ranges AoR Diam MM 2.5 cm JLUIS Vmax 1.9 cm2 LA/Ao MM 1.8 AV Mean Moody 1.2 m/sec LA Dimen MM 4.5 cm AV Mean PG 6.0 mmHg LVIDd 2D 4.9 3.5 - 5.6 cm AV Peak Moody 1.6 m/sec LVIDs 2D 3.8 2.1 - 4.1 cm AV Peak PG 10.0 mmHg FS 2D 22.2 % AV VTI 30.1 cm LVPWd 2D 1.1 0.6 - 1.1 cm LVOT Peak Moody 1.0 m/sec IVSd 2D 1.2 0.6 - 1.1 cm LVOT Peak PG 4.0 mmHg IVS/LVPW 2D 1.0 MV E Peak Moody 0.8 m/sec EDV 2D 116.0 cm3 MV A Peak Moody 0.9 m/sec ESV 2D 54.4 cm3 MV E/A 0.8 EF 2D 45.0 50.0 - 65.0 % MV Decel Time 187 msec LVOT Diam 2.0 cm MV E/A 0.8 LVOT Area 3.1 cm2 MR Peak PG 36.0 mmHg MR Peak Moody 3.0 m/sec TR Peak Moody 2.6 m/sec TR Peak PG 27.0 mmHg RVSP 37.0 mmHg RA Pressure 10.0 Findings Left Ventricle: Normal left ventricular cavity size. Mild concentric left ventricular hypertrophy. Mild left ventricular systolic dysfunction. Ejection fraction is visually estimated at 45 %. Tissue Doppler/Mitral Doppler indices are consistent with impaired relaxation (Stage I diastolic dysfunction). Right Ventricle: Normal right ventricular size. Normal right ventricular systolic function. Left Atrium: There is mild enlargement of left atrium. Right Atrium: The right atrium is normal in size. Mitral Valve: Normal appearance of the mitral valve. Mitral valve leaflets appear mildly thickened. There is trace to mild mitral valve regurgitation. Aortic Valve: No significant aortic stenosis or insufficiency. Calcified non aortic cusp leaflet noted. Aortic sclerosis without significant stenosis. Tricuspid Valve: Normal appearance of the tricuspid valve. Estimated peak PA systolic pressure 37 mmHg. There is mild tricuspid regurgitation. Pulmonic Valve: Normal pulmonic valve appearance. There is trace pulmonic regurgitation. Pericardium: Normal pericardium with no significant pericardial effusion. Aorta: Normal aortic root. IVC: Normal size and normal respiratory collapse consistent with normal right atrial pressure. Conclusions 1.There is mild enlargement of left atrium. 2.Normal appearance of the mitral valve. Mitral valve leaflets appear mildly thickened. There is trace to mild mitral valve regurgitation. 3.No significant aortic stenosis or insufficiency. Calcified non aortic cusp leaflet noted. Aortic sclerosis without significant stenosis. 4.Normal appearance of the tricuspid valve. Estimated peak PA systolic pressure 37 mmHg. There is mild tricuspid regurgitation. Electronically Signed By: Dion Bingham 17-Mar-2017 17:28:23 -0800 Patient Name: MUSTAPHA ADAMSON Study Date: 17-Mar-2017 [id number]
[2017-03-17] MEDS ORDERED: NICOTINE (21 MG/24 HR) PATCH TRANSDERM SCH (18:30)
[2017-03-17] MEDS: CLOPIDOGREL 75 MG TAB PO SCH (18:34)
[2017-03-17] MEDS: SALMETEROL/FLUTICASONE 250/50 INHA INH SCH (20:45)
[2017-03-17] MEDS ORDERED: ATORVASTATIN 80 MG TAB PO SCH (21:00)
[2017-03-18] VITALS (8 sets, daily range): BP systolic 119–145; BP diastolic 63–83; PULSE 66–74; RESP 16–20
[2017-03-18] MEDS: ALBUTEROL/IPRATROPIUM (NEB) 3 ML AMP HHN SCH ×2 (00:16→07:53)
[2017-03-18] MEDS: HEPARIN 5,000 UNIT/0.5 ML VIAL SC SCH ×2 (05:33→14:00)
[2017-03-18] MEDS: ASPIRIN (EC) 81 MG TAB PO SCH (08:46)
[2017-03-18] MEDS: SALMETEROL/FLUTICASONE 250/50 INHA INH SCH (08:46)
[2017-03-18] MEDS: FAMOTIDINE 20 MG TAB PO SCH (08:46)
[2017-03-18] MEDS: CLOPIDOGREL 75 MG TAB PO SCH (08:46)
[2017-03-18 08:53] LABS: ABNORMAL IP MESSAGE 1; BASOPHIL # 0.1 10^3/ul (0.0-0.1); BASOPHILS % 1.7 % (0.0-2.0); EOSINOPHILS # 0.1 10^3/ul (0.0-0.5); EOSINOPHILS % 1.7 % (0.0-7.0); HEMATOCRIT 35.7 % (37.0-47.0); HEMOGLOBIN 11.8 g/dl (12.0-16.0); LYMPHOCYTES # 0.6 10^3/ul (0.8-2.9); LYMPHOCYTES % 19.9 % (15.0-51.0); MEAN CORPUSCULAR HEMOGLOBIN 30.6 pg (29.0-33.0); MEAN CORPUSCULAR HGB CONC 33.1 g/dl (32.0-37.0); MEAN CORPUSCULAR VOLUME 92.7 fl (82.0-101.0); MEAN PLATELET VOLUME 11.7 fl (7.4-10.4); MONOCYTE # 0.3 10^3/ul (0.3-0.9); MONOCYTES % 11.1 % (0.0-11.0); NEUTROPHIL # 1.9 10^3/ul (1.6-7.5); NEUTROPHILS % 65.3 % (39.0-77.0); PLATELET COUNT 185 10^3/UL (140-415); RED BLOOD COUNT 3.85 10^6/ul (4.20-5.40)
[2017-03-18] MEDS ORDERED: FUROSEMIDE 20 MG INJ IV SCH (09:00)
[2017-03-18] MEDS ORDERED: predniSONE 20 MG TAB PO SCH (09:00)
[2017-03-18] MEDS ORDERED: FUROSEMIDE 40 MG INJ IV SCH (09:00)
[2017-03-18 09:07] LABS: POSITIVE DIFF @See below
[2017-03-18 10:32] LABS: CALCIUM 8.7 mg/dl (8.4-10.2); CREATININE 2.23 mg/dl (0.44-1.00); POTASSIUM 4.2 mmol/L (3.5-5.1)
[2017-03-18 10:36] LABS: PHOSPHORUS 5.1 mg/dl (2.5-4.9)
--- NOTE | 2017-03-18 12:12 | PDOCDIS ---
Discharge Instructions DIAGNOSIS Discharge Diagnosis 1.COPD exacerbation with acute bronchitis 2.CAD S/P angioplasty 3.Obesity 4.hyperlipidemia CONDITION Patient Condition: Fair HOME CARE INSTRUCTIONS: Special Diet: cardiac diet ACTIVITY: Activity Restrictions: Slowly Increase Activity JONATHAN MAKI MD Mar 18, 2017 12:12
[2017-03-18] MEDS ORDERED: MED4DP PO ×2 (12:22→13:17)
[2017-03-18] MEDS ORDERED: ATOR80TA75 PO ×2 (12:22→13:20)
[2017-03-18] MEDS ORDERED: CARV6.2579 PO ×2 (12:22→13:20)
[2017-03-18] MEDS ORDERED: ADV25050 INH (12:22)
[2017-03-18] MEDS ORDERED: LEVO750T25 PO ×2 (12:22→13:14)
[2017-03-18] MEDS ORDERED: OXYGEN MC ×2 (12:25→13:20)
[2017-03-18] MEDS ORDERED: IPRA3AMP INHALATION (12:27)
[2017-03-18] MEDS ORDERED: IPRA3AMP HHN (13:14)
[2017-03-18] MEDS ORDERED: CLOP75TA28 PO (13:20)
--- NOTE | 2017-03-18 13:29 | DS ---
Date/Time of Note Date/Time of Note DATE: 03/18/17 TIME: 13:23 Discharge Summary Admission/Discharge Info Admit Date/Time Mar 16, 2017 at 23:19 Discharge Date/Time 03/18/2017 Discharge Diagnosis 1.COPD exacerbation with acute bronchitis 2.CAD S/P angioplasty 3.Obesity 4.hyperlipidemia Patient Condition: Fair Consults None Procedures None. Hx of Present Illness For the last 2 days ,she has been exposed to the cold weather, after which she started coughing and having episodes of shortness of breath and dyspnea on exertion. On the day of admission she had fevers, diaphoresis and worsening dyspnea on exertion and shortness of breath. Hospital Course This is a 66-year-old female with history of coronary artery disease, status post coronary artery bypass surgery in 2010, congestive heart failure unclear ejection fraction, hyperlipidemia, hypertension, morbid obesity, emphysema, currently heavy tobacco user who presented to the emergency department with complaint of severe respiratory distress for 2 days. Patient reports that 2 days ago she was exposed to the cold weather, after which she started coughing and having episodes of shortness of breath and dyspnea on exertion. On the day of admission she had fevers, diaphoresis and worsening dyspnea on exertion and shortness of breath. She was on Lasix as an outpatient and apparently took it 2 days ago, she did not know the list of her medication, it is unlikely she is compliant with medications but claims that she is on Lasix, aspirin and Plavix at least. In the emergency department she was noted to have elevated BNP but chest x-ray only showed a right mild basilar atelectasis and she had an episode of fever up to 101.3. She did receive a dose of Lasix 40 mg IV in the ER last night and this morning with good diuresis, she is noted to have chronic kidney disease and has confirmed that she was told she has it. Creatinine is up to 2.25 today. On my exam she is fairly euvolemic actually, repeat chest x-rays unchanged with no signs of pulmonary edema. Based on her history and symptoms she likely has either bronchitis or bronchopneumonia that may be viral versus bacterial. She also has emphysema and likely has an exacerbation. Therefore her treatment will consist of intervention to treat both COPD exacerbation and mild CHF exacerbation along with possible bronchitis/bronchopneumonia. Eubanks catheter was placed on admission, should be discontinued in the next 24 hours. Patient stable on 2 L nasal cannula but does desaturate easily with minimal exertion. Diuretics dosage have been decreased. She denies chest pain, nausea or vomiting. Cardiac enzymes remain negative and EKG does not show any signs of ischemia. Vital Sign - Last 24 Hours 03/17/17 03/17/17 03/17/17 03/17/17 16:14 20:00 20:00 20:00 Temp 98.2 98.7 Pulse 68 82 62 Resp 18 19 B/P 147/63 150/66 Pulse Ox 96 96 O2 Delivery Nasal Cannula O2 Flow Rate 2.0 03/17/17 03/18/17 03/18/17 03/18/17 23:57 00:00 00:00 00:16 Temp 98.1 Pulse 109 74 Resp 20 B/P 123/81 Pulse Ox 98 97 O2 Flow Rate 4.0 4.0 03/18/17 03/18/17 03/18/17 03/18/17 00:16 00:16 04:00 04:00 Temp 98.4 Pulse 71 71 84 Resp 18 20 B/P 129/78 Pulse Ox 97 98 O2 Delivery Nasal Cannula O2 Flow Rate 4.0 4.0 03/18/17 03/18/17 03/18/17 03/18/17 07:56 08:00 08:11 08:14 Temp 99.1 Pulse 78 73 68 Resp 17 18 B/P 119/63 Pulse Ox 98 100 O2 Delivery Nasal Cannula Nasal Cannula O2 Flow Rate 4.0 2.0 03/18/17 03/18/17 03/18/17 03/18/17 12:00 12:04 12:10 14:00 Temp 97.9 Pulse 66 66 Resp 17 B/P 120/65 Pulse Ox 100 O2 Delivery Nasal Cannula Nasal Cannula O2 Flow Rate 2.0 2.0 03/18/17 16:11 Temp 98.5 Pulse 68 Resp 16 B/P 145/83 Pulse Ox 93 Intake and Output 03/17/17 03/17/17 03/18/17 15:00 23:00 07:00 Intake Total 280 ml 300 ml Output Total 1200 ml 600 ml Balance -920 ml -300 ml Const: alert ,oriented to herself ,place and time Head: Atraumatic] Eyes:Pallor Conjunctiva ENT: Normal External Ears, Nose and Mouth. Neck: Full range of motion. No meningismus. Resp: Clear to auscultation Cardio: Regular rate and rhythm, no murmurs Abd: Soft, non tender, non distended. Normal bowel sounds Skin: No petechiae or rashes Back: No midline or flank tenderness Ext: No cyanosis, or edema Neuro: awake and alert Psych: Normal Mood and Affect Today on discharged date ,she was no longer short of breathing while in bed. However, she ahs been using 2 lit home oxygen. No PND or orthopnea. No fever nor coughing. No headache or blurred vision, No leg edema. She s discharged home with home oxygen 2 lit using at night and as needed when short of breath. Home Meds Active Scripts Levofloxacin* (Levofloxacin*) 750 Mg Tablet, 750 MG PO DAILY for 10 Days, TAB Prov:JONATHAN MAKI MD 03/18/17 Home Oxygen* (Home Oxygen*) 1 Each Dme, 1 EACH MC at night Y for short of breath for 30 Days, #1 DME 0 Refills Prov:JONATHAN MAKI MD 03/18/17 Clopidogrel Bisulfate (Clopidogrel) 75 Mg Tablet, 75 MG PO DAILY for 30 Days, # 30 TAB 1 Refill Prov:JONATHAN MAKI MD 03/18/17 Carvedilol* (Carvedilol*) 6.25 Mg Tablet, 6.25 MG PO BID for 30 Days, #60 TAB 1 Refill Prov:JONATHAN MAKI MD 03/18/17 Atorvastatin* (Atorvastatin*) 80 Mg Tablet, 80 MG PO HS for 30 Days, #30 TAB 3 Refills Prov:JONATHAN MAKI MD 03/18/17 Methylprednisolone* (Medrol* DOSE PACK) 4 Mg/Dose-Pack Tab.ds.pk, 4 MG PO . DIRECTED, #1 PACKET Prov:JONATHAN MAKI MD 03/18/17 Ipratropium-Albuterol (Ipratropium-Albuterol) 0.5-3 Mg/3 Ml Ampul.neb, 3 ML HHN Q4H RESP THERAPY Y for SHORTNESS OF BREATH for 30 Days, #60 AMP 1 Refill Prov:JONATHAN MAKI MD 03/18/17 Levofloxacin* (Levaquin*) 750 Mg Tablet, 750 MG PO Q24H for 7 Days, #7 TAB Prov:JONATHAN MAKI MD 03/18/17 Reported Medications Aspirin (Low Dose Aspirin) 81 Mg Tablet., 81 MG PO DAILY, #30 TAB 05/19/16 Omeprazole* (Omeprazole*) 20 Mg Capsule.dr, 20 MG PO DAILY, #30 CAP 05/19/16 Lisinopril* (Lisinopril*) Unknown Strength Tablet, PO DAILY, #30 TAB 05/19/16 Discontinued Reported Medications Simvastatin* (Simvastatin*) Unknown Strength Tablet, PO QHS, #30 TAB 05/19/16 Carvedilol* (Carvedilol*) Unknown Strength Tablet, PO BID, #60 TAB 05/19/16 Primary Care Provider Follow up with her PCP in 1 week Follow up with the banquet cook in 1 week Time spent on discharge: > 30 minutes Pending Labs Laboratory Tests Test 03/17/17 17:00 03/18/17 07:39 Urine Eosinophils % 0.0% (0-1.9) Urine Random Creatinine 88.88mg/dl (20-320) Urine Random Sodium 78mmol/L (30-90) Urine Total Protein 260.0mg/dl (0.0-11.9) White Blood Count 3.010^3/ul (4.8-10.8) Red Blood Count 3.8510^6/ul (4.20-5.40) Hemoglobin 11.8g/dl (12.0-16.0) Hematocrit 35.7% (37.0-47.0) Mean Corpuscular Volume 92.7fl (82.0-101.0) Mean Corpuscular Hemoglobin 30.6pg (29.0-33.0) Mean Corpuscular Hemoglobin Concent 33.1g/dl (32.0-37.0) Red Cell Distribution Width 14.0% (11.5-14.5) Platelet Count 87776^3/UL (140-415) Mean Platelet Volume 11.7fl (7.4-10.4) Neutrophils % 65.3% (39.0-77.0) Lymphocytes % 19.9% (15.0-51.0) Monocytes % 11.1% (0.0-11.0) Eosinophils % 1.7% (0.0-7.0) Basophils % 1.7% (0.0-2.0) Nucleated Red Blood Cells % 0.0/100WBC (0.0-0.0) Neutrophils # 1.910^3/ul (1.6-7.5) Lymphocytes # 0.610^3/ul (0.8-2.9) Monocytes # 0.310^3/ul (0.3-0.9) Eosinophils # 0.110^3/ul (0.0-0.5) Basophils # 0.110^3/ul (0.0-0.1) Nucleated Red Blood Cells # 0.010^3/ul (0.0-0.0) Sodium Level 135mmol/L (135-144) Potassium Level 4.2mmol/L (3.5-5.1) Chloride Level 97mmol/L (97-110) Carbon Dioxide Level 29mmol/L (21-31) Anion Gap 13 (8-16) Blood Urea Nitrogen 39mg/dl (7-20) Creatinine 2.23mg/dl (0.44-1.00) Glucose Level 86mg/dl (70-220) Calcium Level 8.7mg/dl (8.4-10.2) Phosphorus Level 5.1mg/dl (2.5-4.9) Magnesium Level 2.0mg/dl (1.7-2.5) JONATHAN MAKI MD Mar 18, 2017 13:29
[2017-03-18] MEDS ORDERED: LEVO750T8 PO (14:13)
--- NOTE | 2017-03-21 11:44 | PQ ---
Date/Time of Note Date/Time of Note DATE: 03/21/17 TIME: 11:39 Physician Query Documentation Clarification Dear Dr. Bello , A review of the medical record found a need for documentation clarification. CHF exacerbation - documented in H & P / DC Summary Echo = Mild left ventricular systolic dysfunction. Ejection fraction is visually estimated at 45 %. Tissue Doppler/Mitral Doppler indices are consistent with impaired relaxation (Stage I diastolic dysfunction). BNp = [id number] Med = lasix Please clarify( if known ) the acuity/type of CHF. 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 ) ----see scanned query ( ) Acute Systolic (Reduced EF) Heart Failure ( ICD10 I50.21 ) ( ) Acute Diastolic (Preserved EF) Heart Failure ( ICD10 I50.31 ) ( )Acute Combined Systolic & Diastolic Heart Failure ( ICD10 I50.41 ) ( ) Chronic Systolic (Reduced EF) Heart Failure ( ICD10 I50.22 ) ( ) Chronic Diastolic (Preserved EF) Heart Failure ( ICD10 I50.32 ) ( ) Chronic Combined Systolic & Diastolic Heart Failure ( ICD10 I50.42 ) ( ) Acute on Chronic Systolic (Reduced EF) Heart Failure ( ICD10 I50.23 ) ( )Acute on Chronic Diastolic (Preserved EF) Heart Failure ( ICD10 I50.33 ) Please provide your response by clicking edit document, making your choice ( x ), click ok/save and finally click sign. You may also document your response on your progress notes. Thank you for your time. Mac Lopez RN, BSN, CCS, CCDS, CDIP Clinical Supercharge Repair Supervisor Health Information Management, CDI and Coding Services [phone] Room # 1525 - Coding [address]~ [id number] MAC LOPEZ Mar 21, 2017 11:44
== END 2017-03-18 17:01 | disposition home or self-care (01) | DRG 190 ==
LOC: E/R 15:30 → MS4 23:19
PROVIDERS: ADMIT Internal Medicine; ATTEND Internal Medicine
PROC: 3E0F7GC Introduction of Other Therapeutic Substance into Respiratory Tract, Via Natural or Artificial Opening (ICD-10-PCS; principal; 2017-03-17)
DX: J44.1 Chronic obstructive pulmonary disease with (acute) exacerbation (principal); I50.43 Acute on chronic combined systolic (congestive) and diastolic (congestive) heart failure; I13.0 Hypertensive heart and chronic kidney disease with heart failure and stage 1 through stage 4 chronic kidney disease, or unspecified chronic kidney disease; I50.9 Heart failure, unspecified; J44.0 Chronic obstructive pulmonary disease with (acute) lower respiratory infection; J20.9 Acute bronchitis, unspecified; Z95.1 Presence of aortocoronary bypass graft; I25.10 Atherosclerotic heart disease of native coronary artery without angina pectoris; N18.9 Chronic kidney disease, unspecified; F17.200 Nicotine dependence, unspecified, uncomplicated; E78.5 Hyperlipidemia, unspecified; E66.01 Morbid (severe) obesity due to excess calories; Z68.37 Body mass index [BMI] 37.0-37.9, adult; Z95.5 Presence of coronary angioplasty implant and graft
CPT/HCPCS: 36415; 71010; 76775; 80048; 80053; 80061; 81003; 82550; 82553; 83735; 83880; 84100; 84155; 84300; 84439; 84443; 84484; 85025; 85610; 85730; 87400; 89190; 93005; 93306; 94640; 94664; 96374; 96375; J1940; J1644; J2270; J3475; J7512